=== PATIENT | female | born 1945 | race Caucasian/White ===

== ENCOUNTER → 2020-12-09 11:43 | Outpatient (CLI) | payer MEDICARE, SELFPAY ==
--- NOTE | ~2020-12-09 | MM_ITS ---
EXAMINATION: MM screening [facility] BI w mane HISTORY: Screening mammogram TECHNIQUE: Craniocaudal and mediolateral oblique 3-D tomosynthesis images were obtained and synthetic 2-D images were generated. CAD analysis was submitted and interpreted. COMPARISON: 05/31/2018, 05/29/2017, 05/10/2016 bilateral digital screening mammogram examinations BREAST PARENCHYMAL COMPOSITION: There are scattered areas of fibroglandular density. FINDINGS: Status post partial left mastectomy for breast malignancy, with surgical clips in the poste rior lower inner quadrant of the left breast. There is no evidence of suspicious mass, calcification, or architectural distortion to suggest malignancy in either breast. There has been no suspicious int erval change. IMPRESSION: 1. No mammographic evidence of malignancy. 2. Recommend routine screening mammography in one year. BI-RADS Category 2: Benign finding(s). Reviewed, dictated and finalized at location A.
== END ==
PROVIDERS: PCP Family Medicine; Visit Provider Family Medicine
DX: Z12.31 Encounter for screening mammogram for malignant neoplasm of breast (principal)
CPT/HCPCS: 77063; 77067

== ENCOUNTER 2024-06-16 11:17 | Outpatient (CLI) | payer MEDICARE, SELFPAY ==
[2024-06-16 13:56] LABS: Cholesterol 189 mg/dL (0-200); HDL Direct 63 mg/dL; Triglycerides 165 mg/dL (<150)
[2024-06-16 14:07] LABS: LDL Cholesterol Direct 70 mg/dL
== END 2024-06-16 11:18 | disposition home or self-care (01) ==
LOC: ANHGOSHLAB 11:19
PROVIDERS: PCP Family Medicine; Visit Provider Nurse Practitioner Family
DX: E78.5 Hyperlipidemia, unspecified (principal); E03.9 Hypothyroidism, unspecified
CPT/HCPCS: 36415; 80061; 84439; 84443

== ENCOUNTER 2024-09-16 11:52 | Outpatient (CLI) | payer MEDICARE, SELFPAY ==
--- OUTSIDE RECORDS SUMMARY | 2024-09-16 13:34 | XMS_ITS | Clinical Summary ---
Author Organization [facility] Address [address] [place] [address] Care Team Providers Care Rod Drawer Name Role Phone Unavailable Primary Care Provider Unavailabl e Source Comments [facility] [employer],non-owned Affiliates and Associated Physician Practices is amultiple site organization consisting of ambulatory clinics and hospital sitesin [place], [place], [place] and [place]. This disclosure is being madepursuant to the Care Everywhere program and may not contain all information available regarding this patient. Last updated 18.[facility] [employer] Social History Tobacco Use Types Packs/Day Years Used Date Smoking Tobacco: Never Assessed Sex and Gender Information Value Date Recorded Sex Assigned at Not on file Gender Identity Not on file Sexual Orientation Not on file Plan of Treatment Health Maintenance Due Date Last Done Comments BONE DENSITY TESTING 1945 MEDICARE AWV 12 MONTHS 1945 DTAP/TDAP/TD VACCINES (1 - Tdap) 1962 PNEUMOCOCCAL VACCINE 50+ (1 of 1 - PCV) 1993 ZOSTER VACCINE (1 of 2) 1993 Respiratory Syncytial Virus (RSV) Vaccine Pt: or over 60 yrs (1 - 1-dose 75+ series) 2018 COVID-19 VACCINE ( - 2023-2 5 season) 2024 INFLUENZA VACCINE (#1) 2024 DEPRESSION SCREENING 07/01/2024 HEPATITIS B VACCINE Aged Out No longe r eligible based on patient's age to complete this topic HIB VACCINE Aged Out No longer eligi ble based on patient's age to complete this topic HPV VACCINE Aged Out No longer eligi ble based on patient's age to complete this topic MENINGOCOCCAL (Group B) VACC INE SHARED DECISION-MAKING Aged Out No longer eligibl e based on patient's age to complete this topic MENINGOCOCCAL GROUPS A/C/Y/W VACCINE Aged Out No longer eligible b ased [place] [address]
--- OUTSIDE RECORDS SUMMARY | 2024-09-16 13:34 | XMS_ITS | Clinical Summary ---
Author Organization [facility] Address [facility] [place] [address] Care Team Providers Care Photocopying Machine Operator Name Role Phone Unavailable Primary Care Provider Unavailabl e Social History Tobacco Use Types Packs/Day Years Used Date Smoking Tobacco: Never Assessed Comments Unknown Sex and Gender Information Value Date Recorded Sex Assigned at Not on file Legal Sex Female 5:40 PM CDT Gender Identity Not on file Sexual Orientation Not on file Plan of Treatment Health Maintenance Due Date Last Done Comments DTaP, Tdap and Td Vaccines ( 1 - Tdap) 1962 Zoster Vaccines (1 of 2) 1993 Dexa Scan (General) 2008 Pneumococcal Vaccine: 65+ Ye ars (1 of 1 - PCV) 2008 RSV Immunization or 60+ Years (1 - 1-dose 75+ series) 2018 COVID-19 Vaccine (2023-2 5 season) 2024 Influenza Adult (#1) 2024 Meningococcal B Vaccine Aged Out No l onger eligible based on patient's age to complete this topic Meningococcal Vaccine Aged Out No cong jyoti eligible based on patient's age to complete this topic RSV Immunizations Under 20 Months Aged Out No longer eligible based on patient's age to complete this topic
--- OUTSIDE RECORDS SUMMARY | 2024-09-16 13:34 | XMS_ITS | Encounter Summary ---
Author Organization [facility] Address [address] [place] [address] Care Team Providers Care Stationary Fireman Name Role Phone Unavailable Primary Care Provider Unavailabl e Encounter Details Date Type Department Care Team (Late st Contact Info) Description 08/09/2022 Lab Requisition [facility] DermPath Lab [address] [place] [id number] Adan White MD [address] [place], [place] [id number] Social History Tobacco Use Types Packs/Day Years Used Date Smoking Tobacco: Never Assessed Sex and Gender Information Value Date Recorded Sex Assigned at Not on file Gender Identity Not on file Sexual Orientation Not on file documented as of this encounter Plan of Treatment Not on file documented as of this encounter Procedures Procedure Name Priority Date/Time Associated Diagnosis Comments DERMATOPATHOLOGY Routine 08/08/2022 12:0 0 AM STOVE REFINISHER documented in this encounter Results * DERMATOPATHOLOGY (08/08/2022 12:00 AM STOVE REFINISHER) Case Report Dermatopathology Report Case: [id number] Authorizing Provider: Adan White MD Collected: 08/08/2022 12:00 AM Ordering Location: [facility] Derm[facility] Received: 08/09/2022 01:38 PM Pathologist: Akilah Polanco MD Specimens: A) - Skin, right anterior thigh B) - Skin, right distal exterior forearm C) - Skin, right upper arm at axilla D) - Skin, left anterior lateral distal thigh 5:07 PM [facility] REFIN[facility] DERMATOPATHOLOGY LABORATORY Final Diagnosis Specimen A. SKIN, right anterior thigh: BENIGN VERRUCOUS KERATOSIS, INFLAMED (L82.1) NOT PRESENT AT SAMPLED MARGIN Specimen B. 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 SKIN, right upper arm at axilla: DERMATOFIBROMA (D23.9) Specimen D. SKIN, left anterior lateral distal thigh: BENIGN VERRUCOUS KERATOSIS, INFLAMED (L82.1) 3 5:07 PM [facility] DERMATOPATHOLOGY LABORATORY Clinical History A-C: R/O SCC BCC D: R/O BCC SCC 3 5:07 PM [facility] DERMATOPATHOLOGY LABORATORY Gross Description Specimen A: Received is one formalin filled container labeled with the patient's name and designated right anterior thigh. The specimen consists of a punch excision measuring 7x6x5 mm. Jar 0. Specimen B: Received is one formalin filled container labeled with the patient's name and designated right distal exterior forearm. The specimen consists of a shave biopsy measuring 9x7x1 mm. Jar 0. Specimen C: Received is one formalin filled container labeled with the patient's name and designated right upper arm at axilla. The specimen consists of a shave biopsy measuring 7x4x1 mm. Jar 0. Specimen D: Received is one formalin filled container labeled with the patient's name and designated left anterior lateral distal thigh. The specimen consists of a shave biopsy measuring 11x9x1 mm. Jar 0. 3 5:07 PM [facility] DERMATOPATHOLOGY LABORATORY Microscopic Description Specimen A. SKIN, right anterior thigh: Sections show hyperkeratosis, papillomatosis, hypergranulosis, and acanthosis. Inflammatory cells are present within the dermis. These histological findings can be seen in a verruca vulgaris or a seborrheic keratosis. This lesion is not present at the sampled margin of the specimen. Specimen B. SKIN, right distal exterior forearm: The epidermis is mildly acanthotic. There is a lichenoid infiltrate with vacuolar changes of basilar keratinocytes and scattered necrotic keratinocytes. Specimen C. SKIN, right upper arm at axilla: There is epidermal hyperplasia. Within the dermis, there are fibrohistiocytic cells in haphazard array among coarse collagen bundles. Specimen D. SKIN, left anterior lateral distal thigh: Sections show hyperkeratosis, papillomatosis, hypergranulosis, and acanthosis. Inflammatory cells are present within the dermis. These histological findings can be seen in a verruca vulgaris or a seborrheic keratosis. 3 5:07 PM [facility] DERMATOPATHOLOGY LABORATORY Disclaimer An external and internal positive and negative controls are appropriate for the histochemical, immunohistochemical and immunofluorescence stain(s) in this case (if any), except where stated explicitly. The performance characteristics of the stain(s) cited in this report were developed and its performance characteristic determined by the Dermatopathology Laboratory at [facility], directed by Dr. Drew Polanco. These tests need not be, and therefore are not, approved by the [place] Food and Drug Administration. The tests are used for clinical purposes. Billing Codes Specimen Charges Stain Charges 20761 39876 37714 84742 1 1 1 1 3 5:07 PM [facility] DERMATOPATHOLOGY LABORATORY Embedded Images 3 5:07 PM STOVE REFINISHER DERMATOPATHOLOGY LABORATORY Pathology/Cytology TISSUE SPECIMEN FROM SKIN / Unknown 08/08/2022 08/09/2022 1:38 PM STOVE REFINISHER Miscellaneous samples (specimen) TISSUE SPECIMEN FROM SKIN / Unknown 08/08/2022 08/09/2022 1:38 PM STOVE REFINISHER Miscellaneous samples (specimen) TISSUE SPECIMEN FROM SKIN / Unknown 08/08/2022 08/09/2022 1:38 PM STOVE REFINISHER Miscellaneous samples (specimen) TISSUE SPECIMEN FROM SKIN / Unknown 08/08/2022 08/09/2022 1:38 PM STOVE REFINISHER Adan White MD LAB - PATHOLOGY/CYTO LOGY ORDERABLES DERMATOPATHOLOGY LABORATORY [facility] - Department of Dermatology [address] [place] [address], [facility] [phone] documented in this encounter Visit Diagnoses Not on filedocumented in this encounter
[2024-09-16 21:28] LABS: Free T4 Free Thyroxine Reflex 1.43 ng/dL (0.78-2.19)
[2024-09-16 22:12] LABS: Total Triiodothyronine (T3) 1.04 NG/ML (0.97-1.69)
== END 2024-09-16 11:53 | disposition home or self-care (01) ==
PROVIDERS: PCP Family Medicine; Visit Provider Nurse Practitioner Family
DX: E03.9 Hypothyroidism, unspecified (principal)
CPT/HCPCS: 36415; 84439; 84443; 84480

== ENCOUNTER 2024-09-29 10:00 | Outpatient (CLI) | payer MEDICARE, SELFPAY ==
--- OUTSIDE RECORDS SUMMARY | 2024-09-29 10:54 | XMS_ITS | Clinical Summary ---
Author Organization [facility] Address [address] [place] [address] Care Team Providers Care Beef Trimmer Name Role Phone Unavailable Primary Care Provider [...]
--- OUTSIDE RECORDS SUMMARY | 2024-09-29 10:54 | XMS_ITS | Clinical Summary ---
Author Organization [facility] Address [address] [place] [address] Care Team Providers Care Global Supply Chain Director Name Role Phone Unavailable Primary Care Provider Unavailabl e Source Comments [facility] [employer],non-owned Affiliates and Associated Physician Practices is amultiple site organization consisting of ambulatory clinics and hospital sitesin [place], [place], [place] and [place]. This disclosure is being madepursuant to the Care Everywhere program and may not contain all information available regarding this patient. Last updated 18.[facility] [employer] Social History Tobacco Use Types Packs/Day Years [...] [place] [address]
--- OUTSIDE RECORDS SUMMARY | 2024-09-29 10:54 | XMS_ITS | Encounter Summary ---
Author Organization [facility] Address [address] [place] [address] Care Team Providers Care Content Coordinator Name Role Phone Unavailable Primary Care Provider Unavailabl e Encounter Details Date Type Department Care Team (Late st Contact Info) Description 08/09/2022 Lab Requisition [facility] DermPath Lab [address] [place] [phone] Adan White MD [address] [place], [place] [address] Social History Tobacco Use Types Packs/Day Years [...] Comments DERMATOPATHOLOGY Routine 08/08/2022 12:0 0 AM ELECTRICIAN POWERHOUSE documented in this encounter Results * DERMATOPATHOLOGY (08/08/2022 12:00 AM ELECTRICIAN POWERHOUSE) Case Report Dermatopathology Report Case: [id number] Authorizing Provider: Adan White MD Collected: 08/08/2022 12:00 AM Ordering Location: [facility] Derm[facility] Lab Received: 08/09/2022 01:38 PM Pathologist: Akilah Polanco MD Specimens: A) - Skin, right anterior thigh B) - Skin, right distal exterior forearm C) - Skin, right upper arm at axilla D) - Skin, left anterior lateral distal thigh 5:07 PM ELECTRICIAN POWERHOUSE DERMATOPATHOLOGY LABORATORY Final Diagnosis Specimen A. SKIN, right anterior thigh: BENIGN VERRUCOUS KERATOSIS, INFLAMED (L82.1) NOT PRESENT AT SAMPLED MARGIN Specimen B. 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 SKIN, right upper arm at axilla: DERMATOFIBROMA (D23.9) Specimen D. SKIN, left anterior lateral distal thigh: BENIGN VERRUCOUS KERATOSIS, INFLAMED (L82.1) 3 5:07 PM [facility] DERMATOPATHOLOGY LABORATORY Clinical History A-C: R/O SCC BCC D: R/O BCC SCC 3 5:07 PM [facility] DERMATOPATHOLOGY LABORATORY Gross Description Specimen A: Received [...] 11x9x1 mm. Jar 0. 3 5:07 PM [facility] DERMATOPATHOLOGY LABORATORY Microscopic Description Specimen A. SKIN, [...] or a seborrheic keratosis. 3 5:07 PM [facility] DERMATOPATHOLOGY LABORATORY Disclaimer An external and internal positive and negative controls are appropriate for the histochemical, immunohistochemical and immunofluorescence stain(s) in this case (if any), except where stated explicitly. The performance characteristics of the stain(s) cited in this report were developed and its performance characteristic determined by the Dermatopathology Laboratory at [facility], directed by Dr. Drew Polanco. These tests need not be, and therefore are not, approved by the [place] Food and Drug Administration. The tests are used for clinical purposes. Billing Codes Specimen Charges Stain Charges [id number] [id number] [id number] 1 1 1 1 3 5:07 PM [facility] DERMATOPATHOLOGY LABORATORY Embedded Images 3 5:07 PM ELECTRICIAN POWERHOUSE DERMATOPATHOLOGY LABORATORY Pathology/Cytology TISSUE SPECIMEN FROM SKIN / Unknown 08/08/2022 08/09/2022 1:38 PM ELECTRICIAN POWERHOUSE Miscellaneous samples (specimen) TISSUE SPECIMEN FROM SKIN / Unknown 08/08/2022 08/09/2022 1:38 PM ELECTRICIAN POWERHOUSE Miscellaneous samples (specimen) TISSUE SPECIMEN FROM SKIN / Unknown 08/08/2022 08/09/2022 1:38 PM ELECTRICIAN POWERHOUSE Miscellaneous samples (specimen) TISSUE SPECIMEN FROM SKIN / Unknown 08/08/2022 08/09/2022 1:38 PM ELECTRICIAN POWERHOUSE Adan White MD LAB - PATHOLOGY/CYTO LOGY ORDERABLES DERMATOPATHOLOGY LABORATORY [facility] - Department of Dermatology [address] [place] [address], [facility] [phone] documented in this encounter Visit Diagnoses Not on filedocumented in this encounter
== END 2024-09-29 10:01 | disposition home or self-care (01) ==
LOC: ANHAUDIO 10:00
PROVIDERS: PCP Family Medicine; Visit Provider Otolaryngology
DX: H90.6 Mixed conductive and sensorineural hearing loss, bilateral (principal); H61.23 Impacted cerumen, bilateral; J30.2 Other seasonal allergic rhinitis
CPT/HCPCS: 92557; 92567

== ENCOUNTER 2025-06-11 09:54 | Outpatient (CLI) | payer MEDICARE, SELFPAY ==
[2025-06-11 18:10] LABS: Hematocrit 44.0 % (37.0-47.0); Hemoglobin 14.1 g/dL (12.0-15.0); Immature Granulocyte Percent A 0.2 % (0-0.5); Lymphocytes Absolute Auto 1.03 K/mm3 (0.9-3.2); Mean Corpuscular HGB Conc 32.0 g/dl (32-36); Mean Corpuscular Hemoglobin 28.1 pg (26-34); Mean Corpuscular Volume 87.8 fl (80-100); Nucleated Red Blood Cells Absolute Auto 0.000 K/mm3 (0.0-0.012); Nucleated Red Blood Cells Perc 0.0 % (0.0-0.2); Platelet Count Result 236 k/mm3 (150-375); Red Blood Count 5.01 M/mm3 (4.2-5.4); White Blood Count 8.5 K/mm3 (4.5-10.0)
[2025-06-11 19:11] LABS: Hemoglobin A1C 5.8 % (<5.7)
[2025-06-11 19:20] LABS: Alanine Aminotransferase 29 U/L (6-35); Albumin Level 4.3 g/dL (3.5-5.1); Alkaline Phosphatase 111 U/L (38-126); Anion Gap 7 mmol/L (4-12); Aspartate Amino Transferase 39 U/L (14-36); Bilirubin,Total 0.5 mg/dL (0.2-1.3); Blood Urea Nitrogen 13 mg/dL (7-17); Calcium 10.0 mg/dL (8.4-10.2); Carbon Dioxide 25 mmol/L (22-30); Chloride 97 mmol/L (98-107); Cholesterol 192 mg/dL (0-200); Estimated Glomerular Filt Rate > 60; Glucose 111 mg/dL (65-110); HDL Direct 69 mg/dL; Potassium 5.2 mmol/L (3.4-5.0); Sodium 129 mmol/L (137-145); Total Protein 8.7 g/dL (6.3-8.2); Triglycerides 133 mg/dL (<150)
[2025-06-11 19:50] LABS: Free T4 Free Thyroxine 1.35 ng/dL (0.78-2.19)
[2025-06-11 19:55] LABS: Thyroid Stimulating Hormone 6.760 uIU/mL (0.465-4.680)
== END 2025-06-11 09:55 | disposition home or self-care (01) ==
PROVIDERS: PCP Family Medicine; Visit Provider Nurse Practitioner Family
DX: E78.5 Hyperlipidemia, unspecified (principal); I10 Essential (primary) hypertension; E03.9 Hypothyroidism, unspecified; E55.9 Vitamin D deficiency, unspecified; R73.01 Impaired fasting glucose
CPT/HCPCS: 36415; 80053; 80061; 82306; 83036; 84439; 84443; 85025